=== PATIENT | male | born 1985 | race Caucasian/White ===

== ENCOUNTER 2017-09-01 13:49 | Emergency (ER) | payer OTHER ==
[2017-09-01 15:24] LABS: URINE BILIRUBIN NEGATIVE (NEGATIVE); URINE BLOOD NEGATIVE (NEGATIVE); URINE GLUCOSE (UA) NEGATIVE (NEGATIVE); URINE KETONE NEGATIVE (NEGATIVE); URINE LEUKOCYTE ESTERASE SMALL Leu/uL (NEGATIVE); URINE PROTEIN TRACE mg/dL (<30 mg/dL)
[2017-09-01 15:25] LABS: URINE APPEARANCE SL CLOUDY (CLEAR); URINE COLOR YELLOW (YELLOW)
[2017-09-01 15:28] LABS: URINE RBC NEGATIVE /hpf (0-2)
[2017-09-01 15:29] LABS: URINE BACTERIA TRACE (NEG); URINE WBC 25 - 30 /hpf (0-6)
--- NOTE | 2017-09-01 15:56 | ED PDOC ---
Arrival/HPI - General Chief Complaint: Male Genitourinary Time Seen by Provider: 09/01/17 14:28 Historian: Patient - History of Present Illness Narrative History of Present Illness (Text): 09/01/17 15:50 32-year-old male presents today with a right-sided testicular pain that started last night. Patient states last night he developed a sharp achy right-sided testicular pain that has slightly improved. He denies fevers or chills. Denies abdominal pain. No nausea or vomiting. He is complaining of dysuria and urinary frequency. Patient denies penile discharge. No chest pain or shortness of breath. Took Motrin for pain yesterday. No other complaints. 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 - Anesthesia Hx Anesthesia: Yes Hx Anesthesia Reactions: No Hx Malignant Hyperthermia: No Family/Social History - Physician Review Nursing Documentation Reviewed: Yes Family/Social History: Unknown Family HX Smoking Status: Never Smoked Hx Alcohol Use: No Hx Substance Use: No Allergies/Home Meds Allergies/Adverse Reactions: Allergies No Known Allergies Allergy (Verified 09/01/17 14:32) Review of Systems - Review of Systems Constitutional: absent: Fatigue, Fevers Respiratory: absent: SOB, Cough Cardiovascular: absent: Chest Pain, Palpitations Gastrointestinal: absent: Abdominal Pain, Nausea, Vomiting Genitourinary Male: Dysuria, Frequency, Other (right sided testicular pain). absent: Hematuria Musculoskeletal: absent: Arthralgias, Back Pain, Neck Pain Skin: absent: Rash, Pruritis Neurological: absent: Headache, Dizziness Psychiatric: absent: Anxiety, Depression Physical Exam Vital Signs Reviewed: Yes Vital Signs Temp Pulse Resp BP Pulse Ox 09/01/17 17:08 78 20 137/88 100 09/01/17 14:24 98.6 F 102 H 19 111/77 98 Temperature: Afebrile Blood Pressure: Normal Pulse: Tachycardic Respiratory Rate: Normal Appearance: Positive for: Well-Appearing, Non-Toxic, Comfortable Pain Distress: None Mental Status: Positive for: Alert and Oriented X 3 - Systems Exam Head: Present: Atraumatic Mouth: Present: Moist Mucous Membranes Neck: Present: Normal Range of Motion Respiratory/Chest: Present: Clear to Auscultation. No: Good Air Exchange, Accessory Muscle Use, Wheezes Cardiovascular: Present: Regular Rate and Rhythm, Normal S1, S2. No: Murmurs Abdomen: Present: Normal Bowel Sounds. No: Tenderness, Distention, Peritoneal Signs, Rebound, Guarding Genitourinary Male: Present: Circumcised Penis, Testicle Tenderness (right sided tenderness), Testicle Swelling, Other (chaparoned by janelle CAO). No: Normal External Genitalia (mutiple skin colored papules noted bilaterally), Penile Discharge, Penile Swelling, Masses, Erythema, Hernias Back: Present: Normal Inspection. No: CVA Tenderness, Midline Tenderness, Paraspinal Tenderness Neurological: Present: GCS=15, Speech Normal Skin: Present: Warm, Dry, Normal Color. No: Rashes Psychiatric: Present: Alert, Oriented x 3 Medical Decision Making ED Course and Treatment: 09/01/17 15:58 32-year-old male with right-sided testicular pain since last night Urinalysis: Positive white blood cells and positive bacteria Toradol given for pain Testicular ultrasound:FINDINGS: RIGHT TESTICLE: Measures 4.2 x 2.5 x 3.2 cm. Homogeneous echotexture. Blood flow is demonstrated. RIGHT EPIDIDYMIS: Epididymal head measures approximately 0.8 x 0.9 x 1.5 cm. LEFT TESTICLE: Measures 4.4 x 2.6 x 3.3 cm. Homogeneous echotexture. Blood flow is demonstrated. LEFT EPIDIDYMIS: Epididymal head measures approximately 1.0 x 6 x 1.0 cm. HYDROCELE: None. VARICOCELE: Right-sided varicocele. OTHER FINDINGS: None. IMPRESSION: Right-sided varicocele. pt with UTI and right sided testicular pain with right sided varicocele; will given patient rocephin 1G IV for UTI, add zithromax for prophylaxis for gc/ chlamydia. Patient reassessment, patient nontoxic well-appearing no distress stable vital signs. I discussed the results of depth with the patient and stressed to follow- up with urologist within the next days. Advised to return if symptoms worsen persist or new concerning symptoms develop. impression; uti, testicular pain, motrin every 6 hours as needed for pain keflex; 1 capsule 4 times daily x 7 days increase fluids follow up with the urologist within the next 2 days Follow up with the primary care physician within the next 2 days return if symptoms worsen,persist or if new symptoms develop. 09/01/17 17:23 - Lab Interpretations Lab Results: Lab Results 09/01/17 15:10: Urine Color Yellow, Urine Appearance Sl cloudy, Urine pH 6.0, Ur Specific [place] >= 1.030, Urine Protein Trace H, Urine Glucose (UA) Negative , Urine Ketones Negative, Urine Blood Negative, Urine Nitrate Negative, Urine Bilirubin Negative, Urine Urobilinogen 1.0 H, Ur Leukocyte Esterase Small H, Urine RBC Negative, Urine WBC 25 - 30, Urine Bacteria Trace, Urine Other Mucus - RAD Interpretation Radiology Orders: 09/01/17 14:35 TESTES DUPLEX COMPLETE [US] Stat - Medication Orders Current Medication Orders: Discontinued Medications Ketorolac Tromethamine (Toradol) 60 mg IM STAT STA Stop: 09/01/17 14:36 Last Admin: 09/01/17 14:52 Dose: Not Given Non-Admin Reason: Patient Refused MAR Pain Assessment Document 09/01/17 14:52 LA (Rec: 09/01/17 14:53 LA [id number]) Pain Reassessment Is this a pain reassessment? Yes Sleep Is patient sleeping during reassessment? No Presence of Pain Presence of Pain Yes Pain Scale Used Pain Scale Used Numeric Location Left, Right or Bilateral Right Pain Location Body Site Sacrum Description Description Intermittent Intensity of Pain at present 6 IM Administration Charges Document 09/01/17 14:52 LA (Rec: 09/01/17 14:53 LA [id number]) Charges for Administration # of IM Administrations 0 Disposition/Present on Arrival - Present on Arrival Any Indicators Present on Arrival: No History of DVT/PE: No History of Uncontrolled Diabetes: No Urinary Catheter: No History of Decub. Ulcer: No History Surgical Site Infection Following: None - Disposition Have Diagnosis and Disposition been Completed?: Yes Diagnosis: Urinary tract infection, Testicular pain, Varicocele Disposition Time: 17:26 Patient Plan: Discharge Condition: GOOD Discharge Instructions (ExitCare): Urinary Tract Infection in Men (ED), Varicocele (ED), Testicle Pain (ED) Additional Instructions: motrin every 6 hours as needed for pain keflex; 1 capsule 4 times daily x 7 days increase fluids follow up with the urologist within the next 2 days Follow up with the primary care physician within the next 2 days return if symptoms worsen,persist or if new symptoms develop. Prescriptions: Cephalexin [Keflex] 500 mg PO QID #28 capsule Ibuprofen [Motrin] 600 mg PO Q6H PRN #20 tab PRN Reason: pain/fever reduction Referrals: Sandy Donald APN-[facility] [Primary Care Provider] - Follow up with primary Greg Larsen MD [Staff Provider] - Follow up with primary Forms: [employer] ([place]), WORK NOTE
[2017-09-01 17:08] VITALS: O2SAT 100
--- NOTE | 2017-09-01 17:10 | US ---
HISTORY: right testicular pain since yesterday TECHNIQUE: Realtime sonography through the scrotum with color and doppler flow. COMPARISON: None Available. FINDINGS: RIGHT TESTICLE: Measures 4.2 x 2.5 x 3.2 cm. Homogeneous echotexture. Blood flow is demonstrated. RIGHT EPIDIDYMIS: Epididymal head measures approximately 0.8 x 0.9 x 1.5 cm. LEFT TESTICLE: Measures 4.4 x 2.6 x 3.3 cm. Homogeneous echotexture. Blood flow is demonstrated. LEFT EPIDIDYMIS: Epididymal head measures approximately 1.0 x 6 x 1.0 cm. HYDROCELE: None. VARICOCELE: Right-sided varicocele. OTHER FINDINGS: None. IMPRESSION: Right-sided varicocele.
[2017-09-01] MEDS ORDERED: cefTRIAXone 1 gm 1 G/100 ML BAG IVPB STA (17:21)
[2017-09-01] MEDS ORDERED: cefTRIAXone 1 gm 1 GM/100 ML BAG IVPB STA (17:30)
[2017-09-01 19:15] VITALS: BP 134/87; PULSE 82; RESP 18; TEMP 98
== END 2017-09-01 19:04 | disposition home or self-care (01) ==
LOC: ED 13:49
DX: N39.0 Urinary tract infection, site not specified (principal); I86.1 Scrotal varices; N50.811 Right testicular pain
CPT/HCPCS: 81001; 87086; 87491; 87591; 93975; 99284; J0696